=== PATIENT | male | born 1980 | race Hispanic/Latino ===

== ENCOUNTER 2019-04-05 00:23 | Emergency (ER) | payer OTHER, SELFPAY ==
[2019-04-05 00:30] VITALS: BP 124/79; PULSE 96; O2SAT 96; BMI 33.5
--- NOTE | 2019-04-05 00:30 | DI.RAD.S_ITS ---
PROCEDURE: XR CHEST 2V INDICATIONS: shortness of breath TECHNIQUE: 2 views of the chest were acquired. COMPARISON: None. FINDINGS: Surgical changes and devices: None. Lungs and pleura: No pleural effusion or pneumothorax. No focal consolidation. Diffuse interstitial opacities and scattered groundglass opacities present raising possibility of early pulmonary edema, however technically indeterminate in the absence of prior studies Mediastinum: Mediastinal contours are normal. Heart size is enlarged. Bones and chest wall: No suspicious bony abnormalities. Soft tissues appear unremarkable. IMPRESSION: No acute consolidation. Scattered ground glass and ill-defined opacities as well as Marylou B-lines. Possibility of developing pulmonary edema (or potentially atypical/viral pneumonia) cannot be excluded in the absence prior studies. Differential includes chronic interstitial disease. If there is persistent clinical diagnostic uncertainty, continued surveillance with short interval chest radiographs after treatment is recommended. Cardiomegaly Dictated by: Lorenzo Turcios M.D. on 04/05/2019 at 8:55 Approved by: Lorenzo Turcios M.D. on 04/05/2019 at 8:57
--- NOTE | 2019-04-05 00:32 | ED_ITS ---
HPI - Chest Pain General Chief Complaint: Chest Pain Stated Complaint: coughing 3 days chest pain Time Seen by Provider: 04/05/19 00:32 Source: patient Mode of arrival: Ambulatory Limitations: no limitations History of Present Illness HPI narrative: This is a 38-year-old male who comes to the emergency department with complaint of coughing for 3 days. Patient states that he has felt crackles in his chest. Has not had any fevers. But he has felt like he has had crackles leg. He has had a cough which has been nonproductive. He states it is worse when he lays flat. He states he increase his Lasix from 20 mg to 80 mg for the last 2 days and then today took 60 mg. Patient states on the way here he felt short of breath, he states that he had an episode of coughing and vomited phlegm. He denies any nasal congestion. He states he has had cough and chest pain with that cough that central. He states if he lays flat it makes is cough worse. He states he has had some edema in his lower extremities although improving. He normally takes metoprolol daily as well as Lasix. He is also a type 1 insulin-dependent diabetic and on insulin. Takes aspirin 81 mg daily. He has used albuterol nebulizers in the past but ran out. He states he has a pacemaker. 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 He denies tobacco, alcohol or illicit. His operations engineer is Roger Maldonado [facility], he recently moved to the area 2 months ago and has not established locally with a operations engineer. Related Data Previous Rx's Medication Instructions Recorded furosemide [Lasix] 40 mg PO DAILY #5 tab 04/05/19 Allergies Allergy/AdvReac Type Severity Reaction Status Date / Time iodine Allergy Verified 04/05/19 00:40 midazolam [From Versed] Allergy Verified 04/05/19 00:40 Review of Systems Review of Systems ROS Unobtainable: All systems reviewed & are unremarkable except as noted in HPI and below Patient History Medical History (Updated 04/05/19 @ 02:56 by Sierra Crow DO) Asthma (Acute) Heart block (Acute) Insulin dependent diabetes mellitus (Acute) Pacemaker (Acute) Tricuspid regurgitation (Acute) Social History Smoking Status: Never smoker alcohol intake: never substance use type: does not use Exam Narrative Exam Narrative: GENERAL: Alert and oriented x three, obese male in mild distress HEENT: Head normocephalic, atraumatic, EOMI, pupils reactive, face symmetric, moist mucous membranes NECK: Supple, full range of motion CARDIOVASCULAR: Regular rate and rhythm without murmurs, rubs or gallops. RESPIRATORY: Breath sounds equal bilaterally, mild wheezes with cough at the base, no rales or rhonchi. Patient has dry cough in the room. ABDOMEN: Soft, nontender. Normoactive bowel sounds all 4 quadrants. No guarding or rebound, rigidity, no mass : No CVA tenderness EXTREMITIES: Normal range of motion, no clubbing or edema bilateral lower extremities. Neurovascularly intact NEUROLOGICAL: Cranial nerves II through XII grossly intact. Moving all extre mities SKIN: Warm, dry, no petechiae, no rashes or lesions. Initial Vital Signs Initial Vital Signs: Vital Signs Pulse Rate 96 H 04/05/19 00:30 Blood Pressure 124/79 04/05/19 00:30 Pulse Oximetry 96 04/05/19 00:30 Course Orders Ordered: ED Orders 04/05/19 00:30 XR chest 2V Stat EKG-12 Lead Stat 04/05/19 00:40 B Type Natriuretic Peptide Stat Complete Blood Count AUTO DIFF Stat Comprehensive Metabolic Panel Stat Lipase Stat Partial Thromboplastin Time Stat Troponin & CK Cardiac Panel Stat Discontinued Medications Albuterol (Ventolin) 2.5 mg INH NOW ONE Stop: 04/05/19 01:07 Last Admin: 04/05/19 01:11 Dose: 2.5 mg Documented by: ANNA Albuterol (Ventolin Hfa Prepack) 1 box MISC SEEINSTR ONE Stop: 04/05/19 02:49 Last Admin: 04/05/19 02:51 Dose: 1 box Documented by: ANNA Vital Signs Vital signs: Vital Signs - 8 hr 04/05/19 00:30 04/05/19 01:11 04/05/19 01:40 Pulse Rate 96 H 89 Respiratory Rate 20 Blood Pressure 124/79 Blood Pressure [Left Arm] 119/77 Pulse Oximetry 96 97 100 04/05/19 02:00 04/05/19 02:53 Pulse Rate 85 87 Respiratory Rate 21 22 Blood Pressure 117/76 Blood Pressure [Left Arm] 117/76 Pulse Oximetry 97 98 MDM - Chest Pain Lab Data Attestation: I reviewed the patient's lab results. Result diagrams: 04/05/19 00:40 04/05/19 00:40 Labs: Lab Results 04/05/19 04/05/19 04/05/19 Range/Units 00:40 00:40 00:40 WBC 12.5 H (4.5-11.0) X10^3/uL RBC 4.28 L (4.5-5.9) X10^6/uL Hgb 12.0 L (13.5-17.5) g/dL Hct 35.3 L (41-53) % MCV 82.4 (80-100) fL MCH 28.1 (26-34) PG MCHC 34.1 (30-36) % RDW 14.4 (11.6-14.8) % Plt Count 288 (150-400) X10^3/uL Neut % (Auto) 73.3 (50-75) % Lymph % (Auto) 19.0 L (25-40) % Grayson % (Auto) 6.2 (3-14) % Eos % (Auto) 0.9 L (2-4) % Baso % (Auto) 0.6 (0-2) % Neut # (Auto) 9100 H (5771-2627) /uL Lymph # (Auto) 2400 (5247-3284) /uL Grayson # (Auto) 800 (0-900) /uL Eos # (Auto) 100 (0-450) /uL Baso # (Auto) 100 (0-100) /uL APTT 34 (26.4-36.2) SECONDS Sodium (137-145) mmol/L Potassium (3.4-5.1) mmol/L Chloride (98-107) mmol/L Carbon Dioxide (22-32) mmol/L BUN (9-20) mg/dL Creatinine (0.66-1.25) mg/dL Estimated GFR (>60) mL/min BUN/Creatinine Ratio (6-22) Glucose (70-100) mg/dL Calcium (8.4-10.2) mg/dL Total Bilirubin (0.2-1.3) mg/dL AST (17-59) IU/L ALT (<50) IU/L Alkaline Phosphatase (38-126) U/L Total Creatine Kinase (55-170) U/L CK-MB (CK-2) (<2.37) ng/mL CK-MB (CK-2) Rel Index (1.5-5.0) % Troponin I (0.01-0.034) ng/mL B-Natriuretic Peptide 422 H (<100) Total Protein (6.3-8.2) g/dL Albumin (3.5-5.0) g/dL Globulin (1.7-4.1) g/dL Albumin/Globulin Ratio (1.0-2.8) Lipase (23-300) U/L 04/05/19 Range/Units 00:40 WBC (4.5-11.0) X10^3/uL RBC (4.5-5.9) X10^6/uL Hgb (13.5-17.5) g/dL Hct (41-53) % MCV (80-100) fL MCH (26-34) PG MCHC (30-36) % RDW (11.6-14.8) % Plt Count (150-400) X10^3/uL Neut % (Auto) (50-75) % Lymph % (Auto) (25-40) % Grayson % (Auto) (3-14) % Eos % (Auto) (2-4) % Baso % (Auto) (0-2) % Neut # (Auto) (8304-7746) /uL Lymph # (Auto) (7120-9209) /uL Grayson # (Auto) (0-900) /uL Eos # (Auto) (0-450) /uL Baso # (Auto) (0-100) /uL APTT (26.4-36.2) SECONDS Sodium 135 L (137-145) mmol/L Potassium 3.8 (3.4-5.1) mmol/L Chloride 98 (98-107) mmol/L Carbon Dioxide 31 (22-32) mmol/L BUN 30 H (9-20) mg/dL Creatinine 2.10 H (0.66-1.25) mg/dL Estimated GFR 35.2 L (>60) mL/min BUN/Creatinine Ratio 14.3 (6-22) Glucose 157 H (70-100) mg/dL Calcium 8.8 (8.4-10.2) mg/dL Total Bilirubin 1.3 (0.2-1.3) mg/dL AST 21 (17-59) IU/L ALT 14 (<50) IU/L Alkaline Phosphatase 130 H (38-126) U/L Total Creatine Kinase 105 (55-170) U/L CK-MB (CK-2) 1.18 (<2.37) ng/mL CK-MB (CK-2) Rel Index 1.1 L (1.5-5.0) % Troponin I 0.017 (0.01-0.034) ng/mL B-Natriuretic Peptide (<100) Total Protein 7.3 (6.3-8.2) g/dL Albumin 4.0 (3.5-5.0) g/dL Globulin 3.3 (1.7-4.1) g/dL Albumin/Globulin Ratio 1.2 (1.0-2.8) Lipase 17 L (23-300) U/L Imaging Data Chest x-ray: Attestation: I personally reviewed and interpreted this imaging study as follows: My impression: cardiomegaly, pacemaker leads appear in place and intact, puolm edema, no infiltrate or opacification noted. ECG Data Attestation: I personally reviewed and interpreted this ECG as follows: Prior ECG tracings: not available for review Interpretation: Ventricularly paced rhythm with a rate of 93 NE 224 QRS of 161 and QTC of 461. No ST changes appreciated. No priors available. MDM Narrative Medical decision making narrative: Contacted [facility] [place] Patient is seen by there cardiology team through the Adult Congenital Team, I initially spoke with Dr. Braden from the Children[facility] team and she recommended the adult team. Patient states he has seen Dr. Meade with the Adult team who is the operations engineer brickmason supervisor today. He has an additional number for the nurses line at [phone]. I spoke with Dr. Meade from the Adult Congenital Team, she is familiar with the patient although she has not seen him in a little bit of time. She states she does recall he has some renal insufficiency he does not she does not recall his typical numbers. And that he has had issues with congestive heart failure in the past. We discussed that he is paced but at a rate of 93 so she thinks that it is less likely that he has been having an arrhythmia. She states that can sometimes cause him to go into CHF. She states they would be happy to help set the patient up with [facility] and if the patient will call the office in the morning they can fax paperwork and get the patient in contact with the [facility] adult congenital team. Plan continue a short course of increase Lasix and have patient return for recheck if he is not i mproving. Discussed with patient he is comfortable with the plan. Patient has been able to ambulate the department with no major issues,. no tachypnea, no tachycardia, he is 98-86% on room air. Patient and I did discuss his renal function, he is unsure what his normal creatinine is and states he may have decreased function. We discussed I do not have any priors for comparison and patient could have decreased renal function 2nd to lasix use although Dr. Meade did believe patient has some renal insufficiency she does not have patient's prior labs available at this time. Also discussed his BNP and he states that is a familiar number to him. Troponin is negative. Suspect he is having a CHF exacerbation and plan to continue increased dose of lasix. Patient has some at home but given short term prescription. States he has plenty of his other medications except for albuterol. Patient states he will call this morning and has the number for the cardiac team. Discussed signs and symptoms to watch for and reasons to return. Patient is comfortable with this plan. 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 Continue your home medications as prescribed. Take lasix 40mg daily x 5 days. Use albuterol 1-2 puffs every 4 hours as needed for symptoms. Return to the ER if you're not improving, if you are having fevers good 100.4 F, worsening shortness of breath, cough, new chest pain or pressure, lightheadedness, passing out, new swelling in her lower extremities or other new or concerning symptoms. Prescriptions: New furosemide [Lasix] 40 mg tablet 40 mg PO DAILY Qty: 5 RF: 0
--- NOTE | 2019-04-05 00:53 | PC.NURSE ---
Patient reports dry, hacking cough for the last 3 days with chest pain starting this morning. pain is worse with coughing and deep breaths.
[2019-04-05 00:54] LABS: Add Manual Diff / Slide Review NO; Basophils Absolute Auto 100 /uL (0-100); Basophils Percent Auto 0.6 % (0-2); Eosinophils Absolute Auto 100 /uL (0-450); Eosinophils Percent Auto 0.9 % (2-4); Hematocrit 35.3 % (41-53); Lymphocytes Absolute Auto 2400 /uL (1100-4500); Mean Corpuscular HGB Conc 34.1 % (30-36); Mean Corpuscular Hemoglobin 28.1 PG (26-34); Mean Corpuscular Volume 82.4 fL (80-100); Monocytes Absolute Auto 800 /uL (0-900); Monocytes Percent Auto 6.2 % (3-14); Neutrophils Absolute Auto 9100 /uL (1500-7000); Neutrophils Percent Auto 73.3 % (50-75); Platelet Count 288 X10^3/uL (150-400); Red Blood Cell Count 4.28 X10^6/uL (4.5-5.9); Red Cell Distribution Width 14.4 % (11.6-14.8); White Blood Cell Count 12.5 X10^3/uL (4.5-11.0)
[2019-04-05 00:57] LABS: PTT Partial Thromboplastin Tim 34 SECONDS (26.4-36.2)
[2019-04-05 00:59] LABS: Alanine Aminotransferase 14 IU/L (<50); Albumin Globulin Ratio 1.2 (1.0-2.8); Alkaline Phosphatase 130 U/L (38-126); Aspartate Aminotransferase 21 IU/L (17-59); BUN Creatinine Ratio 14.3 (6-22); Bilirubin Total 1.3 mg/dL (0.2-1.3); Blood Urea Nitrogen 30 mg/dL (9-20); Calcium 8.8 mg/dL (8.4-10.2); Carbon Dioxide 31 mmol/L (22-32); Chloride 98 mmol/L (98-107); Creatine Kinase 105 U/L (55-170); Estimated Glomerular Filt Rate 35.2 mL/min (>60); Globulin 3.3 g/dL (1.7-4.1); Glucose 157 mg/dL (70-100); HEMOLYSIS < 15 (0-50); Lipase 17 U/L (23-300); Potassium 3.8 mmol/L (3.4-5.1); Sodium 135 mmol/L (137-145); Total Protein 7.3 g/dL (6.3-8.2)
[2019-04-05 01:11] VITALS: O2SAT 97
[2019-04-05 01:11] LABS: Troponin I 0.017 ng/mL (0.01-0.034)
[2019-04-05] MEDS: ALBUTEROL 2.5 MG/3 ML NEB (ADULT) INH (01:11)
[2019-04-05 01:12] LABS: B Type Natriuretic Peptide 422 (<100)
[2019-04-05 01:14] LABS: CKMB % Relative Index 1.1 % (1.5-5.0); Creatine Kinase MB 1.18 ng/mL (<2.37)
[2019-04-05 01:40] VITALS: BP 119/77; PULSE 89; RESP 20; O2SAT 100
[2019-04-05 02:00] VITALS: BP 117/76; PULSE 85; RESP 21; O2SAT 97
[2019-04-05] MEDS: ALBUTEROL HFA PREPACK 1 BOX MISC (02:51)
[2019-04-05 02:53] VITALS: BP 117/76; PULSE 87; RESP 22; O2SAT 98
--- NOTE | 2019-04-09 11:45 | PC.NURSE ---
pt called, did not refill lasix, and states was not called into pharmacy, consult dr. trujillo, apparently pt took own lasix and realized ran out of meds. dr. trujillo wanted lasix 20mg called in for pt, #10/ pt notifed and wanted rx called to [facility] in [place]/ [facility].
== END 2019-04-05 02:47 | disposition home or self-care (01) ==
PROVIDERS: Emergency Provider Emergency Medicine
DX: I50.9 Heart failure, unspecified (principal); Q20.3 Discordant ventriculoarterial connection; E11.9 Type 2 diabetes mellitus without complications; Z95.5 Presence of coronary angioplasty implant and graft
CPT/HCPCS: 36415; 71046; 80053; 82550; 82553; 83690; 83880; 84484; 85025; 85730; 93005; 94640; 99282; 99285; J7613

== ENCOUNTER 2019-04-11 07:05 | Emergency (ER) | payer OTHER, SELFPAY ==
--- NOTE | 2019-04-11 07:14 | DI.RAD.S_ITS ---
PROCEDURE: XR CHEST 1V INDICATIONS: SOB TECHNIQUE: One view of the chest was acquired. COMPARISON: [facility], CR, XR CHEST 2V, 04/05/2019, 0:27. FINDINGS: Surgical changes and devices: Pacemaker Lungs and pleura: Interstitial pulmonary edema. No focal airspace consolidation. No pleural effusions or pneumothorax. Mediastinum: Mediastinal contours appear normal. Stable cardiomegaly. Bones and chest wall: No suspicious bony lesions. Overlying soft tissues appear unremarkable. IMPRESSION: Congestive heart failure exacerbation Dictated by: Eric Champagne M.D. on 04/11/2019 at 7:49 Approved by: Eric Champagne M.D. on 04/11/2019 at 7:50
[2019-04-11 07:16] VITALS: BP 113/83; PULSE 85; RESP 15; TEMP 36.8; O2SAT 96
--- NOTE | 2019-04-11 07:26 | ED.CHESTPAIN ---
HPI - Chest Pain General Chief Complaint: Chest Pain Stated Complaint: DIFFICULTY BREATHING, FATIGUE COUGHING Time Seen by Provider: 04/11/19 07:08 Source: patient Mode of arrival: Ambulatory Limitations: no limitations History of Present Illness HPI narrative: 38-year-old male with multiple medical problems to include asthma. He is on an albuterol inhaler home with a spacer. Is ventricularly paced. Is on anticoagulation for this. This is secondary to a reported history of congestive heart failure. He has been taking 40 mg of Lasix on a daily basis since his last visit here in the emergency department on 04/05/2019. 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 Has a history of heart block. His insulin-dependent type 1 diabetes. Also has a history of bladder cancer. This is diagnosed within the past 6 months. It appears that it was a ?local ?cancer that was surgically removed by Urology. Patient states that he was told that he should get ?preventative ?intra bladder chemotherapy however the time he did not have medical insurance so did not get this done. He states that this was a local cancer. This was diagnosed after he was having pain and hematuria. His oncologist is in [facility]. He has not followed up with them recently. Was seen here on 04/05/2019 for cough. Had multiple labs performed which did show an elevated creatinine. And also a BNP in the 400s. The provider at the time was able to talk with the Adult Congenital Heart group with [facility]. Patient was given phone numbers to contact the [facility] for follow-up however because of the has been unable to do so. Patient returns today for the same cough that he had on the of last . He states he has chest pain associated with the cough. States that is especially at night. Has a hard time lying flat because of the cough. Related Data Previous Rx's Medication Instructions Recorded furosemide [Lasix] 40 mg PO DAILY #5 tab 04/05/19 azithromycin See Rx Instructions .ROUTE 04/11/19 .COMPLEX #6 tab benzonatate [Tessalon Perles] 100 mg PO TID PRN #20 cap 04/11/19 furosemide [Lasix] 40 mg PO DAILY #90 tab 04/11/19 Allergies Allergy/AdvReac Type Severity Reaction Status Date / Time iodine Allergy Verified 04/11/19 07:54 midazolam [From Versed] Allergy Verified 04/11/19 07:54 Review of Systems Constitutional Constitutional: Denies fever(s) Cardiovascular Cardiovascular: Reports chest pain (With cough), Denies edema, Reports dyspnea (With cough) and Denies dyspnea on exertion Respiratory Respiratory: Reports dyspnea (With cough) and Denies dyspnea on exertion Gastrointestinal Gastrointestinal: Denies abdominal pain, Reports nausea and Denies vomiting Musculoskeletal Musculoskeletal: Denies myalgias and Denies arthralgias Integumentary/Breasts Skin/Breast: Denies rash Neurologic Neurologic: Denies behavioral changes Psychiatric Psychiatric: Denies behavioral changes Hematologic/Lymphatic Hematologic/Lymphatic: Denies easy bleeding and Denies easy bruising Patient History Medical History (Updated 04/11/19 @ 09:55 by Mike Callejas DO) Asthma (Acute) Bladder cancer (Acute) Heart block (Acute) Insulin dependent diabetes mellitus (Acute) Pacemaker (Acute) Tricuspid regurgitation (Acute) Social History Smoking Status: Never smoker alcohol intake: never substance use type: does not use alcohol intake frequency: 0-2 drinks per day Substance Use Type: does not use Exam Initial Vital Signs Initial Vital Signs: Vital Signs Temperature 98.3 F 04/11/19 07:16 Pulse Rate 85 04/11/19 07:16 Respiratory Rate 15 04/11/19 07:16 Blood Pressure 113/83 04/11/19 07:16 Pulse Oximetry 96 04/11/19 07:16 Const General: cooperative, comfortable, well developed and well groomed Orientation: alert, awake and oriented x3 HENMT Head: normal to inspection and normocephalic Resp Effort & Inspection: normal respiratory effort Auscultation: clear to auscultation bilaterally Cardio Rate: regular rate Rhythm: regular rhythm Pulses: radial pulses present GI Inspection: non-distended Palpation: soft, No firm and No tender Skin Lesions: no lesions Rashes: no rashes Neuro General: alert, awake and oriented x3 Cognition: normal cognition Speech: speech normal Gait: normal gait Extrem General: normal to inspection, capillary refill normal and No edema Psych Appearance: grossly normal and well kempt Course Orders Ordered: ED Orders 04/11/19 07:14 XR chest 1V Stat EKG-12 Lead Stat 04/11/19 07:20 B Type Natriuretic Peptide Stat Complete Blood Count AUTO DIFF Stat Comprehensive Metabolic Panel Stat Ketones (Beta-Hydroxybutyrate) Stat Lipase Stat Partial Thromboplastin Time Stat Phosphorous Stat Procalcitonin Stat Prothrombin Time INR Stat Troponin I Stat Vital Signs Vital signs: Vital Signs - 8 hr 04/11/19 07:16 Temperature 98.3 F Pulse Rate 85 Respiratory Rate 15 Blood Pressure 113/83 Pulse Oximetry 96 MDM - Chest Pain Medical Records Data Attestation: I reviewed the patient's medical records. Lab Data Attestation: I reviewed the patient's lab results. Result diagrams: 04/11/19 07:20 04/11/19 07:20 Labs: Lab Results 04/11/19 04/11/19 04/11/19 Range/Units 07:20 07:20 07:20 WBC 10.0 (4.5-11.0) X10^3/uL RBC 4.30 L (4.5-5.9) X10^6/uL Hgb 12.0 L (13.5-17.5) g/dL Hct 35.9 L (41-53) % MCV 83.5 (80-100) fL MCH 28.0 (26-34) PG MCHC 33.5 (30-36) % RDW 14.4 (11.6-14.8) % Plt Count 292 (150-400) X10^3/uL Neut % (Auto) 70.6 (50-75) % Lymph % (Auto) 21.0 L (25-40) % [place] % (Auto) 6.4 (3-14) % Eos % (Auto) 1.3 L (2-4) % Baso % (Auto) 0.7 (0-2) % Neut # (Auto) 7100 H (4070-5415) /uL Lymph # (Auto) 2100 (9796-5994) /uL [place] # (Auto) 600 (0-900) /uL Eos # (Auto) 100 (0-450) /uL Baso # (Auto) 100 (0-100) /uL PT 14.3 H (10.1-12.7) SECONDS INR 1.2 (0.9-1.3) APTT 34 (26.4-36.2) SECONDS Sodium 138 (137-145) mmol/L Potassium 3.9 (3.4-5.1) mmol/L Chloride 101 (98-107) mmol/L Carbon Dioxide 28 (22-32) mmol/L BUN 25 H (9-20) mg/dL Creatinine 1.90 H (0.66-1.25) mg/dL Estimated GFR 39.5 L (>60) mL/min BUN/Creatinine Ratio 13.2 (6-22) Glucose 73 (70-100) mg/dL Calcium 9.1 (8.4-10.2) mg/dL Phosphorus 3.8 (2.5-4.5) mg/dL Total Bilirubin 1.6 H (0.2-1.3) mg/dL AST 22 (17-59) IU/L ALT 14 (<50) IU/L Alkaline Phosphatase 125 (38-126) U/L Troponin I 0.013 (0.01-0.034) ng/mL B-Natriuretic Peptide 580 H (<100) Total Protein 7.5 (6.3-8.2) g/dL Albumin 4.2 (3.5-5.0) g/dL Globulin 3.3 (1.7-4.1) g/dL Albumin/Globulin Ratio 1.3 (1.0-2.8) Lipase < 10 L (23-300) U/L Procalcitonin (<0.5) ng/mL Ketones 0.08 (<0.27) mmol/L 04/11/19 Range/Units 07:20 WBC (4.5-11.0) X10^3/uL RBC (4.5-5.9) X10^6/uL Hgb (13.5-17.5) g/dL Hct (41-53) % MCV (80-100) fL MCH (26-34) PG MCHC (30-36) % RDW (11.6-14.8) % Plt Count (150-400) X10^3/uL Neut % (Auto) (50-75) % Lymph % (Auto) (25-40) % [place] % (Auto) (3-14) % Eos % (Auto) (2-4) % Baso % (Auto) (0-2) % Neut # (Auto) (8243-1965) /uL Lymph # (Auto) (3647-2665) /uL [place] # (Auto) (0-900) /uL Eos # (Auto) (0-450) /uL Baso # (Auto) (0-100) /uL PT (10.1-12.7) SECONDS INR (0.9-1.3) APTT (26.4-36.2) SECONDS Sodium (137-145) mmol/L Potassium (3.4-5.1) mmol/L Chloride (98-107) mmol/L Carbon Dioxide (22-32) mmol/L BUN (9-20) mg/dL Creatinine (0.66-1.25) mg/dL Estimated GFR (>60) mL/min BUN/Creatinine Ratio (6-22) Glucose (70-100) mg/dL Calcium (8.4-10.2) mg/dL Phosphorus (2.5-4.5) mg/dL Total Bilirubin (0.2-1.3) mg/dL AST (17-59) IU/L ALT (<50) IU/L Alkaline Phosphatase (38-126) U/L Troponin I (0.01-0.034) ng/mL B-Natriuretic Peptide (<100) Total Protein (6.3-8.2) g/dL Albumin (3.5-5.0) g/dL Globulin (1.7-4.1) g/dL Albumin/Globulin Ratio (1.0-2.8) Lipase (23-300) U/L Procalcitonin < 0.05 (<0.5) ng/mL Ketones (<0.27) mmol/L Imaging Data Chest x-ray: Radiologist's impression: [address] [address] XRay Report Signed Patient: Uriah Rojas#: [id number] : 1980Acct:[id number] Age/Sex: 38 / MDate of Service: 04/11/19 Loc: ED Accession Number: [id number] Procedure: XR chest 1V Ordering Provider: Mike Callejas D.O. PROCEDURE: XR CHEST 1V INDICATIONS: SOB TECHNIQUE: One view of the chest was acquired. COMPARISON: [facility], CR, XR CHEST 2V, 04/05/2019, 0:27. FINDINGS: Surgical changes and devices: Pacemaker Lungs and pleura: Interstitial pulmonary edema. No focal airspace consolidation. No pleural effusions or pneumothorax. Mediastinum: Mediastinal contours appear normal. Stable cardiomegaly. Bones and chest wall: No suspicious bony lesions. Overlying soft tissues appear unremarkable. IMPRESSION: Congestive heart failure exacerbation Dictated by: Eric Champagne M.D. on 04/11/2019 at 7:49 Approved by: Eric Champagne M.D. on 04/11/2019 at 7:50 ECG Data Attestation: I personally reviewed and interpreted this ECG as follows: Prior ECG tracings: available for review Interpretation: Ventricular paced Rate 88 Unchanged from EKG 04/05/2019 [facility] Narrative Medical decision making narrative: Patient not in any respiratory distress. EKG is unchanged and is ventricular paced. Chest x-ray does show what appears to be heart failure but is unchanged from the . He is not hypoxic. Not tachypneic. Afebrile. Troponin is negative. His creatinine has improved since he was here a couple days ago. He has been taking 40 mg of Lasix since the . This was increased from 20 mg. His BNP is slightly elevated today and he is having coughing. His lungs are clear however I feel given the rest of his cardiac history that increasing his Lasix to 60 mg for the next week and then having him dropped back to 40 mg is not unreasonable. I will refill prescription of this for him. He has been having a dry cough worse at night. He has taken Zyrtec in the past. I did inform him he should start taking this medication again. Given his complex medical history the uncertainty of whether not his cough is viral in origin versus his potentially a CHF issue and given the history of his diabetes that I feel that treating him with a course of antibiotics would not be unreasonable. Will give him azithromycin to see if this does not improve his symptoms of well. Will give Tessalon Perles for symptomatic treatment. He was given the phone number again for the [facility] adult congenital heart team. He will contact them later today for follow-up. He also is in contact with his oncologist to follow-up with his bladder cancer. He was given return precautions. His is at bedside. They expressed understanding and agreement with plan. Discharge Plan Departure Patient Disposition: Home Clinical Impression: Cough Instructions: Cough Activity Restrictions/Additional Instructions: You can follow up with the [facility] adult congenital heart team. You can contact them by contacting the General Cardiology Clinic at [phone]. Like we discussed I recommend you increase her Lasix to 60 mg daily for the next week and then you can drop back down to 40 mg. Also recommend you start taking Zyrtec on a daily basis. Use the Tessalon Perles for the cough as needed. Take the antibiotics as directed. I also highly recommend you contact your oncologist for follow-up. Contact your primary provider as well. If you do not have a primary provider you can contact the health human resources receptionist at [phone]. Return to the emergency department for any new or worsening symptoms Prescriptions: New furosemide [Lasix] 20 mg tablet 40 mg PO DAILY Qty: 90 RF: 0 benzonatate [Tessalon Perles] 100 mg capsule 100 mg PO TID PRN (Reason: cough) Qty: 20 RF: 0 azithromycin 250 mg tablet See Rx Instructions .ROUTE .COMPLEX Qty: 6 RF: 0 No Action furosemide [Lasix] 40 mg tablet 40 mg PO DAILY Qty: 5 RF: 0
[2019-04-11 07:33] LABS: INR 1.2 (0.9-1.3); Prothrombin Time 14.3 SECONDS (10.1-12.7)
[2019-04-11 07:35] LABS: HEMOLYSIS < 15 (0-50)
[2019-04-11 07:36] LABS: PTT Partial Thromboplastin Tim 34 SECONDS (26.4-36.2)
[2019-04-11 07:37] LABS: Add Manual Diff / Slide Review NO; Basophils Absolute Auto 100 /uL (0-100); Basophils Percent Auto 0.7 % (0-2); Eosinophils Absolute Auto 100 /uL (0-450); Eosinophils Percent Auto 1.3 % (2-4); Hematocrit 35.9 % (41-53); Lymphocytes Absolute Auto 2100 /uL (1100-4500); Mean Corpuscular HGB Conc 33.5 % (30-36); Mean Corpuscular Volume 83.5 fL (80-100); Monocytes Absolute Auto 600 /uL (0-900); Monocytes Percent Auto 6.4 % (3-14); Neutrophils Absolute Auto 7100 /uL (1500-7000); Neutrophils Percent Auto 70.6 % (50-75); Platelet Count 292 X10^3/uL (150-400); Red Cell Distribution Width 14.4 % (11.6-14.8)
[2019-04-11 07:41] LABS: Alanine Aminotransferase 14 IU/L (<50); Albumin 4.2 g/dL (3.5-5.0); Albumin Globulin Ratio 1.3 (1.0-2.8); Alkaline Phosphatase 125 U/L (38-126); Aspartate Aminotransferase 22 IU/L (17-59); BUN Creatinine Ratio 13.2 (6-22); Bilirubin Total 1.6 mg/dL (0.2-1.3); Blood Urea Nitrogen 25 mg/dL (9-20); Calcium 9.1 mg/dL (8.4-10.2); Carbon Dioxide 28 mmol/L (22-32); Chloride 101 mmol/L (98-107); Estimated Glomerular Filt Rate 39.5 mL/min (>60); Globulin 3.3 g/dL (1.7-4.1); Glucose 73 mg/dL (70-100); Phosphorous 3.8 mg/dL (2.5-4.5); Potassium 3.9 mmol/L (3.4-5.1); Sodium 138 mmol/L (137-145); Total Protein 7.5 g/dL (6.3-8.2)
[2019-04-11 07:46] LABS: Lipase < 10 U/L (23-300)
[2019-04-11 07:59] LABS: Ketones (Beta-Hydroxybutyrate) 0.08 mmol/L (<0.27)
[2019-04-11 08:03] LABS: Procalcitonin < 0.05 ng/mL (<0.5)
[2019-04-11 08:07] LABS: B Type Natriuretic Peptide 580 (<100)
[2019-04-11 08:16] LABS: Troponin I 0.013 ng/mL (0.01-0.034)
[2019-04-11 10:00] VITALS: BP 116/76; PULSE 77; RESP 23; O2SAT 97
== END 2019-04-11 10:00 | disposition home or self-care (01) ==
PROVIDERS: Emergency Provider Emergency Medicine
DX: R05 Cough (principal); R07.9 Chest pain, unspecified; R06.02 Shortness of breath; E10.8 Type 1 diabetes mellitus with unspecified complications; Z79.4 Long term (current) use of insulin; Z95.5 Presence of coronary angioplasty implant and graft
CPT/HCPCS: 36415; 71045; 80053; 82009; 83690; 83880; 84100; 84145; 84484; 85025; 85610; 85730; 93005; 99282; 99285

== ENCOUNTER 2019-04-16 06:48 | Emergency (ER) | payer OTHER, SELFPAY ==
--- NOTE | 2019-04-16 06:57 | DI.RAD.S_ITS ---
PROCEDURE: XR CHEST 1V INDICATIONS: coughing right sided rib pain TECHNIQUE: One view of the chest was acquired. COMPARISON: [facility], CR, XR CHEST 2V, 04/05/2019, 0:27. [facility], CR, XR CHEST 1V, 04/11/2019, 7:31. FINDINGS: Surgical changes and devices: A left chest wall dual-lead pacemaker is redemonstrated. Leads appear intact and in similar positions. Lungs and pleura: There are increased reticular interstitial opacities compatible with slightly increased pulmonary edema. No focal consolidation. No pleural effusions or pneumothorax. Mediastinum: Mediastinal contours appear unchanged. Heart size is enlarged. Bones and chest wall: No suspicious bony lesions. No displaced rib fracture identified. Overlying soft tissues appear unremarkable. IMPRESSION: 1. Slightly increased pulmonary edema. Dictated by: Everett Solano M.D. on 04/16/2019 at 7:24 Approved by: Everett Solano M.D. on 04/16/2019 at 7:26
[2019-04-16 07:00] VITALS: BP 114/87; PULSE 87; RESP 32; TEMP 36.4; O2SAT 94
[2019-04-16 07:33] VITALS: BP 115/77; PULSE 86; O2SAT 98
[2019-04-16] MEDS: OXYCODONE/ACETAMINOPHEN 7.5/325 TABLET 1 TAB PO (08:08)
[2019-04-16 08:11] LABS: Add Manual Diff / Slide Review NO; Basophils Absolute Auto 100 /uL (0-100); Basophils Percent Auto 0.7 % (0-2); Eosinophils Absolute Auto 0 /uL (0-450); Eosinophils Percent Auto 0.5 % (2-4); Hematocrit 36.8 % (41-53); Hemoglobin 12.3 g/dL (13.5-17.5); Lymphocytes Absolute Auto 1000 /uL (1100-4500); Lymphocytes Percent Auto 11.9 % (25-40); Mean Corpuscular HGB Conc 33.4 % (30-36); Mean Corpuscular Volume 83.7 fL (80-100); Monocytes Absolute Auto 400 /uL (0-900); Monocytes Percent Auto 4.6 % (3-14); Neutrophils Absolute Auto 7200 /uL (1500-7000); Neutrophils Percent Auto 82.3 % (50-75); Platelet Count 310 X10^3/uL (150-400); Red Cell Distribution Width 14.4 % (11.6-14.8); White Blood Cell Count 8.8 X10^3/uL (4.5-11.0)
--- NOTE | 2019-04-16 08:18 | ED.URI ---
HPI - URI/Sore Throat General Chief Complaint: Upper Respiratory Symptoms Stated Complaint: coughing/muscle spasm/pain stomach to back Time Seen by Provider: 04/16/19 07:25 Source: patient and family Mode of arrival: Family Vehicle Limitations: no limitations History of Present Illness HPI Narrative: This is a 38-year-old male with a history of transposition of the great arteries (no surgical repair, naturally corrected), is followed by Dr. Pineda at , who presents with upper back pain after coughing fit. Patient had some coughing this morning and during a coughing fit he felt a pop in his back on the right side which she states feels like is in the muscle. Since that time when he moves in certain ways he has had severe pain in right thorax. He denies any shortness of breath, other than he takes a very deep breath in the movement causes some pain in his back. He denies any hemoptysis. No anterior chest pain. Patient states that he did have some shortness breath over last month, he saw Dr. Murguia 3 days ago and had an echocardiogram which reportedly was at his baseline and was reassuring, his creatinine was slightly elevated but they are monitoring this closely outpatient. He was started on azithromycin and they increased his dose of Lasix to 40mg BID and he overall has been feeling improved over the last week. His weight has been fairly stable, it did go up by 1-2 lb over the last week Related Data Previous Rx's Medication Instructions Recorded furosemide [Lasix] 40 mg PO DAILY #5 tab 04/05/19 azithromycin See Rx Instructions .ROUTE 04/11/19 .COMPLEX #6 tab benzonatate [Tessalon Perles] 100 mg PO TID PRN #20 cap 04/11/19 furosemide [Lasix] 40 mg PO DAILY #90 tab 04/11/19 cyclobenzaprine 10 mg PO TID PRN #12 tab 04/16/19 lidocaine-menthol See Rx Instructions .ROUTE 04/16/19 .COMPLEX #5 each Allergies Allergy/AdvReac Type Severity Reaction Status Date / Time iodine Allergy Verified 04/11/19 07:54 midazolam [From Versed] Allergy Verified 04/11/19 07:54 Review of Systems Constitutional Constitutional: Denies fever(s) Cardiovascular Cardiovascular: Denies chest pain Respiratory Comments: No hemoptysis Gastrointestinal Gastrointestinal: Denies vomiting Genitourinary Genitourinary: Denies dysuria Integumentary/Breasts Skin/Breast: Denies rash Neurologic Neurologic: Denies confusion Psychiatric Psychiatric: Denies confusion Patient History Medical History Asthma (Acute) Bladder cancer (Acute) Heart block (Acute) Insulin dependent diabetes mellitus (Acute) Pacemaker (Acute) Tricuspid regurgitation (Acute) Social History Smoking Status: Never smoker alcohol intake: never substance use type: does not use Smoking Status: Never smoker alcohol intake frequency: 0-2 drinks per day Substance Use Type: does not use Exam Narrative Exam Narrative: General: Non-toxic, well-appearing Head: Atraumatic Neck: Normal range of motion Cardiac: RRR on my exam Respiratory: Normal work of breathing, Bibasilar crackles Abd: Soft, non-tender to palpation in all 4 quadrants Back: Atraumatic in appearance, no midline tenderness in the midthoracic paraspinous muscles there is an area of focal tenderness Neuro: Alert and oriented x 3 Initial Vital Signs Initial Vital Signs: Vital Signs Temperature 97.6 F 04/16/19 07:00 Pulse Rate 87 04/16/19 07:00 Respiratory Rate 32 H 04/16/19 07:00 Blood Pressure 114/87 04/16/19 07:00 Pulse Oximetry 94 04/16/19 07:00 Course Orders Ordered: ED Orders 04/16/19 06:57 Chest [XR chest 1V] Stat 04/16/19 07:38 EKG-12 Lead Stat 04/16/19 08:05 B Type Natriuretic Peptide Stat Complete Blood Count AUTO DIFF Stat Comprehensive Metabolic Panel Stat Troponin & CK Cardiac Panel Stat Discontinued Medications Cyclobenzaprine HCl (Flexeril) 10 mg PO NOW ONE Stop: 04/16/19 09:59 Oxycodone/Acetaminophen (Oxycodon/Acetaminophen 7.5/325) 1 tab PO NOW ONE Stop: 04/16/19 07:39 Last Admin: 04/16/19 08:08 Dose: 1 tab Documented by: TIFFANIE Consultations Consultation #1: Dr. Summers: I spoke with Dr. Summers who reviewed the patient's case with him, patient was seen in clinic recently. Today it appears that his BNP is slightly elevated today and he does have some signs of mildly increased pulmonary edema, but his symptoms are improving, and patient does not clinically appear to be in acute heart failure at this time. After reviewing the labs with Dr. Pineda he agrees with the plan for close outpatient follow-up, patient will call in the clinic with his weight over the next several days. Time: 10:15 Vital Signs Vital signs: Vital Signs - 8 hr 04/16/19 07:00 04/16/19 07:33 04/16/19 08:30 Temperature 97.6 F Pulse Rate 87 86 78 Respiratory Rate 32 H 16 Blood Pressure 114/87 Blood Pressure [Left Arm] 115/77 113/69 Pulse Oximetry 94 98 94 04/16/19 09:00 Temperature Pulse Rate 75 Respiratory Rate 18 Blood Pressure Blood Pressure [Left Arm] 100/65 Pulse Oximetry 99 MDM - URI/Sore Throat Lab Data Result diagrams: 04/16/19 08:05 04/16/19 08:05 Labs: Lab Results 04/16/19 04/16/19 04/16/19 Range/Units 08:05 08:05 08:05 WBC 8.8 (4.5-11.0) X10^3/uL RBC 4.40 L (4.5-5.9) X10^6/uL Hgb 12.3 L (13.5-17.5) g/dL Hct 36.8 L (41-53) % MCV 83.7 (80-100) fL MCH 28.0 (26-34) PG MCHC 33.4 (30-36) % RDW 14.4 (11.6-14.8) % Plt Count 310 (150-400) X10^3/uL Neut % (Auto) 82.3 H (50-75) % Lymph % (Auto) 11.9 L (25-40) % [place] % (Auto) 4.6 (3-14) % Eos % (Auto) 0.5 L (2-4) % Baso % (Auto) 0.7 (0-2) % Neut # (Auto) 7200 H (0992-6036) /uL Lymph # (Auto) 1000 L (3245-8531) /uL [place] # (Auto) 400 (0-900) /uL Eos # (Auto) 0 (0-450) /uL Baso # (Auto) 100 (0-100) /uL Sodium 138 (137-145) mmol/L Potassium 4.4 (3.4-5.1) mmol/L Chloride 100 (98-107) mmol/L Carbon Dioxide 26 (22-32) mmol/L BUN 27 H (9-20) mg/dL Creatinine 1.80 H (0.66-1.25) mg/dL Estimated GFR 42.0 L (>60) mL/min BUN/Creatinine Ratio 15.0 (6-22) Glucose 132 H (70-100) mg/dL Calcium 9.4 (8.4-10.2) mg/dL Total Bilirubin 1.4 H (0.2-1.3) mg/dL AST 28 (17-59) IU/L ALT 17 (<50) IU/L Alkaline Phosphatase 131 H (38-126) U/L Total Creatine Kinase 156 (55-170) U/L CK-MB (CK-2) 1.00 (<2.37) ng/mL CK-MB (CK-2) Rel Index 0.6 L (1.5-5.0) % Troponin I < 0.012 (0.01-0.034) ng/mL B-Natriuretic Peptide 713 H (<100) Total Protein 7.8 (6.3-8.2) g/dL Albumin 4.5 (3.5-5.0) g/dL Globulin 3.3 (1.7-4.1) g/dL Albumin/Globulin Ratio 1.4 (1.0-2.8) Imaging Data Chest x-ray: Radiologist's impression: IMPRESSION: 1. Slightly increased pulmonary edema. Dictated by: Everett Solano M.D. on 04/16/2019 at 7:24 Approved by: Everett Solano M.D. on 04/16/2019 at 7:26 ECG Data Interpretation: Time 7:56 a.m., rhythm appears to be ventricularly paced, no STEMI by sgarbossa criteria. MDM Narrative Medical decision making narrative: Patient presents with what appears to be musculoskeletal pain he has an area of focal tenderness in his paraspinous muscles in his right popsterior thorax after coughing, no areas of crepitus no signs of external trauma. His chest x-ray does show some mildly increased pulmonary edema, no PTX, and his BNP is slightly elevated compared to past values in our system, his creatinine is stable and his troponin is negative the patient has no anterior chest pain or changes in his EKG to suggest acute ischemia or dysrhythmia. His breathing feels normal to him and he is saturating normally on room air. He was given Percocet followed by flexeril as some improvement in his pain. I discussed the case with his attendant sales and patient will follow up closely for follow-up on his chronic heart failure, and if he has any worsening or return to the emergency department. He will take 1 increased dose of his Lasix today. Patient agrees with plan and was discharged home in care of his Discharge Plan Departure Patient Disposition: Home Clinical Impression: Muscle strain, History of chronic CHF Activity Restrictions/Additional Instructions: I think that your pain in your back after coughing is likely a muscle strain, we do not see signs of any displaced broken ribs or collapsed lung on your x-ray today. You may take 650 mg of acetaminophen every 6 hours as needed for pain, I am also prescribing some Flexeril you can use if the Tylenol is not sufficient in controlling her pain. Your BNP is a bit more elevated than prior (now in the 700s), and your chest x-ray does show signs of some increased fluid on your lungs, please take 60 mg of furosemide 1 time today, and continue to weigh yourself daily. Please follow up with your attendant sales in the clinic in the next 2 days to discuss if any further changes to medications are needed. If you have any increasing shortness of breath, pain in the front of her chest, coughing up blood, or any other concerning symptoms return to the emergency department. Prescriptions: New cyclobenzaprine 10 mg tablet 10 mg PO TID PRN (Reason: muscle spasm) Qty: 12 RF: 0 lidocaine-menthol 5-6 % kit See Rx Instructions .ROUTE .COMPLEX Qty: 5 RF: 0 No Action furosemide [Lasix] 40 mg tablet 40 mg PO DAILY Qty: 5 RF: 0 furosemide [Lasix] 20 mg tablet 40 mg PO DAILY Qty: 90 RF: 0 benzonatate [Tessalon Perles] 100 mg capsule 100 mg PO TID PRN (Reason: cough) Qty: 20 RF: 0 azithromycin 250 mg tablet See Rx Instructions .ROUTE .COMPLEX Qty: 6 RF: 0
[2019-04-16 08:25] LABS: Alanine Aminotransferase 17 IU/L (<50); Albumin 4.5 g/dL (3.5-5.0); Albumin Globulin Ratio 1.4 (1.0-2.8); Alkaline Phosphatase 131 U/L (38-126); Aspartate Aminotransferase 28 IU/L (17-59); Bilirubin Total 1.4 mg/dL (0.2-1.3); Blood Urea Nitrogen 27 mg/dL (9-20); Calcium 9.4 mg/dL (8.4-10.2); Carbon Dioxide 26 mmol/L (22-32); Chloride 100 mmol/L (98-107); Globulin 3.3 g/dL (1.7-4.1); Glucose 132 mg/dL (70-100); HEMOLYSIS < 15 (0-50); Potassium 4.4 mmol/L (3.4-5.1); Sodium 138 mmol/L (137-145); Total Protein 7.8 g/dL (6.3-8.2)
[2019-04-16 08:26] LABS: Creatine Kinase 156 U/L (55-170)
[2019-04-16 08:30] VITALS: BP 113/69; PULSE 78; RESP 16; O2SAT 94
[2019-04-16 08:33] LABS: B Type Natriuretic Peptide 713 (<100)
[2019-04-16 08:37] LABS: Troponin I < 0.012 ng/mL (0.01-0.034)
[2019-04-16 08:41] LABS: CKMB % Relative Index 0.6 % (1.5-5.0)
[2019-04-16 09:00] VITALS: BP 100/65; PULSE 75; RESP 18; O2SAT 99
[2019-04-16 10:00] VITALS: BP 116/77; PULSE 76; RESP 18; O2SAT 95
[2019-04-16 10:42] VITALS: BP 113/74; PULSE 75; RESP 16; O2SAT 97
[2019-04-16] MEDS: CYCLOBENZAPRINE 10 MG TABLET PO (10:43)
== END 2019-04-16 10:55 | disposition home or self-care (01) ==
PROVIDERS: Emergency Provider Emergency Medicine
DX: S29.012A Strain of muscle and tendon of back wall of thorax, initial encounter (principal); Z86.79 Personal history of other diseases of the circulatory system; E11.8 Type 2 diabetes mellitus with unspecified complications; Z79.4 Long term (current) use of insulin; Z95.5 Presence of coronary angioplasty implant and graft
CPT/HCPCS: 71045; 80053; 82550; 82553; 83880; 84484; 85025; 93005; 99283; 99285

== ENCOUNTER → 2019-05-13 11:08 | Outpatient (CLI) | payer OTHER, SELFPAY ==
--- NOTE | 2019-05-13 12:08 | DI.CT.S_ITS ---
PROCEDURE: CT CHEST ABD PEL W CON INDICATIONS: Malignant neoplasm of bladder, unspecified TECHNIQUE: After the administration of oral and intravenous contrast, 5 mm thick sections acquired from the lung apices to the symphysis. 5 mm coronal and sagittal reformats were performed, with additional 7 mm coronal MIP reformats through the lungs. For radiation dose reduction, the following was used: automated exposure control, adjustment of mA and/or kV according to patient size. COMPARISON: None available at the time of this dictation. FINDINGS: Image quality: Excellent. CHEST: Lungs and pleura: No acute airspace opacities. There is a small right-sided pleural effusion. There is a trace left-sided pleural effusion. Mild areas of nodular thickening can be seen along the posterior pleural surfaces on both sides. No pneumothorax. Central and peripheral airways appear patent and normal in caliber. Mediastinum: A pacer device is seen. Heart size is moderately enlarged. No pericardial effusion. No mediastinal or hilar adenopathy by size criteria. Thoracic aorta and central pulmonary arteries are normal in size. Esophagus is normal in caliber. No hiatal hernia. Chest wall: No axillary or supraclavicular adenopathy by size criteria. Thyroid gland demonstrates no significant CT abnormality. A subacute appearing right posterior 7th rib fracture can be seen. No pathologic appearing bone can be seen at this site. ABDOMEN: Solid organs: Liver is normal in size. There is an area of poorly defined enhancement involving the right liver dome, as on series 2 image 46 and image 5 image 30 measuring up to 11 mm (segment 8). No additional focal liver lesions are seen. Gallbladder demonstrates no significant CT abnormality. Biliary system is non dilated. Pancreas enhances normally. Spleen is normal in size and enhancement. No focal adrenal nodules. However, there is moderate generalized thickening of the right adrenal gland. There is at least moderate left-sided hydroureter and hydronephrosis. There is minimal left-sided perinephric fat stranding. The left kidney demonstrates decreased enhancement compared to the right kidney. No renal masses are detected. No right-sided hydronephrosis. Peritoneum and bowel: Bowel loops demonstrate normal wall thickness and caliber. No free fluid or air. Nodes and vessels: No retroperitoneal or mesenteric adenopathy by size criteria. Aorta and inferior vena cava are normal in size. Miscellaneous: No ventral hernias. PELVIS: Genitourinary: Abnormal hyperenhancement with wall thickening can be seen involving the left posterior bladder that measures 2.5 cm, overlying the left ureteral orifice. Miscellaneous: No inguinal hernias or adenopathy. Bones: No suspicious bony lesions. No vertebral body compression fractures. IMPRESSION: There is a 2.5 cm enhancing bladder mass is seen at the left ureteral orifice, with associated left-sided hydroureter and hydronephrosis. Small bilateral pleural effusions are seen. There is mild pleural thickening seen along the posterior pleural surfaces. An area of poorly defined enhancement can be seen within the liver. Differential diagnosis includes metastatic disease and a hemangioma. When clinically appropriate, please consider a dedicated liver protocol CT study for further evaluation. Incidental note is made of: Subacute appearing right posterior 7th rib fracture Pacer device. Moderate cardiomegaly. Note: Case discussed by telephone with Angela ([facility] urology preparation department supervisor) at 3:35 PM [place] time on May 13, 2019. Dictated by: Tha Nichole M.D. on 05/13/2019 at 11:49 Transcribed by: MARLY on 05/13/2019 at 13:10 Approved by: Tha Nichole M.D. on 05/13/2019 at 15:07
== END ==
PROVIDERS: Visit Provider Internal Medicine Hematology & Oncology
DX: C67.9 Malignant neoplasm of bladder, unspecified (principal); N13.30 Unspecified hydronephrosis; J90 Pleural effusion, not elsewhere classified; I51.7 Cardiomegaly; S22.31XA Fracture of one rib, right side, initial encounter for closed fracture; Z95.0 Presence of cardiac pacemaker
CPT/HCPCS: 71260; 74177; Q9967

== ENCOUNTER → 2019-06-18 09:54 | Outpatient (CLI) | payer OTHER, SELFPAY ==
[2019-06-18 11:47] LABS: Blood Urea Nitrogen 24 mg/dL (9-20); Calcium 9.5 mg/dL (8.4-10.2); Carbon Dioxide 29 mmol/L (22-32); Chloride 99 mmol/L (98-107); Estimated Glomerular Filt Rate > 60.0 mL/min (>60); Glucose 110 mg/dL (70-100); HEMOLYSIS < 15 (0-50); Potassium 3.8 mmol/L (3.4-5.1); Sodium 138 mmol/L (137-145)
== END ==
PROVIDERS: Referring Provider Nurse Practitioner; Visit Provider Nurse Practitioner
DX: I36.1 Nonrheumatic tricuspid (valve) insufficiency (principal); Q20.5 Discordant atrioventricular connection; I44.2 Atrioventricular block, complete; I42.9 Cardiomyopathy, unspecified
CPT/HCPCS: 36415; 80048

== ENCOUNTER → 2020-05-18 08:52 | Outpatient (CLI) | payer BC, SELFPAY ==
[2020-05-18 09:53] LABS: INR 2.4 (0.9-1.3)
== END ==
PROVIDERS: Referring Provider Pharmacist; Visit Provider Pharmacist
DX: I36.1 Nonrheumatic tricuspid (valve) insufficiency (principal); I47.1 Supraventricular tachycardia
CPT/HCPCS: 36415; 85610

== ENCOUNTER → 2020-05-25 07:25 | Outpatient (CLI) | payer BC, SELFPAY ==
[2020-05-25 08:48] LABS: INR 2.5 (0.9-1.3); Prothrombin Time 28.1 SECONDS (10.1-12.7)
== END ==
PROVIDERS: Referring Provider Pharmacist; Visit Provider Pharmacist
DX: I36.1 Nonrheumatic tricuspid (valve) insufficiency (principal); I47.1 Supraventricular tachycardia
CPT/HCPCS: 36415; 85610

== ENCOUNTER → 2020-05-30 08:44 | Outpatient (CLI) | payer BC, SELFPAY ==
[2020-05-30 10:00] LABS: Prothrombin Time 22.6 SECONDS (10.1-12.7)
[2020-05-30 10:04] LABS: BUN Creatinine Ratio 21.6 (6-22); Blood Urea Nitrogen 21 mg/dL (9-20); Calcium 9.5 mg/dL (8.4-10.2); Carbon Dioxide 26 mmol/L (22-32); Chloride 98 mmol/L (98-107); Estimated Glomerular Filt Rate > 60.0 mL/min (>60); Glucose 205 mg/dL (70-100); HEMOLYSIS < 15 (0-50); Potassium 4.7 mmol/L (3.4-5.1); Sodium 132 mmol/L (137-145)
== END ==
PROVIDERS: Referring Provider Pharmacist; Visit Provider Pharmacist
DX: I36.1 Nonrheumatic tricuspid (valve) insufficiency (principal); I47.1 Supraventricular tachycardia; Q20.5 Discordant atrioventricular connection
CPT/HCPCS: 36415; 80048; 85610

== ENCOUNTER 2020-11-07 10:30 | Outpatient (RCR) | payer BC, SELFPAY | END 2020-11-27 07:59 | LOC: CAR 10:30 | PROVIDERS: Referring Provider Surgery; Visit Provider Surgery | DX: Z95.5 Presence of coronary angioplasty implant and graft (principal) | CPT/HCPCS: 93798 ==